=== PATIENT | female | born 1955 | race African-American/Black ===

== ENCOUNTER 2017-11-20 | Emergency (ER) | payer OTHER ==
[~2017-11-20] VITALS: Ht 167.6 cm; Wt 93.0 kg
[~2017-11-20] MED LIST: AUGM875T3 PO; HYDR-3533 PO; TRAM50 PO; Z.0.NO CURRENT MEDS
[2017-11-20 00:08] VITALS: BP 170/72; PULSE 77; RESP 16; TEMP 98.3; O2SAT 100
[2017-11-20] MEDS ORDERED: SODIUM CHLOR 0.9% 1000 ML INJ 1,000 ML IV ONE (00:21)
[2017-11-20] MEDS ORDERED: METOCLOPRAMIDE HCL 10 MG/2 ML VIAL IVP ONE (00:30)
[2017-11-20] MEDS ORDERED: diphenhydrAMINE HCL 50 MG/ML VIAL IVP ONE (00:30)
[2017-11-20] MEDS ORDERED: SODIUM CHLORIDE 0.9% FLUSH 10 ML FLUSH IVF PRN (00:30)
[2017-11-20] MEDS ORDERED: DEXAMETHASONE SOD PHOS 20 MG/5 ML VIAL IV PUSH ONE (00:30)
--- NOTE | 2017-11-20 00:39 | PD ---
HPI Chief Complaint: Headache Time Seen by Provider: 00:15 Travel History International Travel<30 days: No Contact w/Intl Traveler<30days: No Traveled to known affect area: No History of Present Illness HPI Patient is a 62-year-old female presents to emergency room with complaints of frontal headache. Reports that headache has been constant for the past 3 days, she has had similar headaches in the past. She did try taking aleve yesterday with mild relief of symptoms. Patient reports that she has return of headache tonight and she is unable to sleep due to her headache. She does have history of hypertension, reports that she did run out of her blood pressure medications and did not take them for a few days - reports that she did take a dose of her medications tonight. She is not able to tell me which medications she is on. Reports no vision changes, denies thunderclap headache. Reports that this is not the worst headache of her life, reports that she had similar headaches in the past and was seen in May for this. Patient with no fever or chills, no neck pain, no other complaints at this time. PFSH Past Medical History Cancer: No Cardiovascular Problems: Yes (HTN) Cirrhosis: Yes Endocrine: No GERD: Yes Genitourinary: No Hypertension: Yes Immune Disorder: No Musculoskeletal: No Neurologic: No Psychiatric: No Reproductive: No Respiratory: No Tetanus Vaccination: < 5 Years Influenza Vaccination: No ?: Not Menopausal: Yes Tubal Ligation: Yes Past Surgical History Pacemaker: No Social History Alcohol Use: No Tobacco Use: No Substance Use: No Allergies-Medications (Allergen,Severity, Reaction): Coded Allergies: No Known Allergies (Verified Adverse Reaction, Unknown, 11/20/17) Reported Meds & Prescriptions Reported Meds & Active Scripts Active Reported Lisinopril 20 Mg Tab 20 Mg PO DAILY Hydrochlorothiazide 25 Mg Tab 25 Mg PO DAILY Review of Systems General / Constitutional: No: Fever Eyes: No: Diploplia, Blurred Vision, Photophobia, Visual changes HENT: Positive: Headaches, No: Neck Pain Cardiovascular: No: Chest Pain or Discomfort Respiratory: No: Shortness of Breath Gastrointestinal: No: Abdominal Pain Genitourinary: No: Dysuria Musculoskeletal: No: Pain Skin: No Rash Neurologic: No: Weakness Psychiatric: No: Depression Endocrine: No: Polydipsia Hematologic/Lymphatic: No: Easy Bruising Physical Exam Narrative GENERAL: Mild distress SKIN: Focused skin assessment warm/dry. HEAD: Atraumatic. Normocephalic. EYES: Pupils equal and round. No scleral icterus. No injection or drainage. ENT: No nasal bleeding or discharge. Mucous membranes pink and moist. NECK: Trachea midline. No JVD. No nuchal rigidity CARDIOVASCULAR: Regular rate and rhythm. No murmur appreciated. RESPIRATORY: No accessory muscle use. Clear to auscultation. Breath sounds equal bilaterally. GASTROINTESTINAL: Abdomen soft, non-tender, nondistended. Hepatic and splenic margins not palpable. MUSCULOSKELETAL: No obvious deformities. No clubbing. No cyanosis. No edema. NEUROLOGICAL: Awake and alert. No obvious cranial nerve deficits. Motor grossly within normal limits. Normal speech. Cranial nerves 2-12 grossly intact with no neurological deficits PSYCHIATRIC: Appropriate mood and affect; insight and judgment normal. Data Data Last Documented VS Vital Signs Date Time Temp Pulse Resp B/P (MAP) Pulse Ox O2 Delivery O2 Flow Rate FiO2 11/20/17 00:58 72 18 136/64 (88) 99 Room Air 11/20/17 00:08 98.3 Orders Orders Complete Blood Count With Diff (11/20/17 00:21) Basic Metabolic Panel (Bmp) (11/20/17 00:21) Ct Brain W/O Iv Contrast(Rout) (11/20/17 00:21) Ecg Monitoring (11/20/17 00:21) Iv Access Insert/Monitor (11/20/17 00:21) Sodium Chloride 0.9% Flush (Ns Flush) (11/20/17 00:30) Diphenhydramine Inj (Benadryl Inj) (11/20/17 00:30) Metoclopramide Inj (Reglan Inj) (11/20/17 00:30) Sodium Chlor 0.9% 1000 Ml Inj (Ns 1000 M (11/20/17 00:21) Dexamethasone Inj (Decadron Inj) (11/20/17 00:30) MDM Medical Decision Making Medical Screen Exam Complete: Yes Emergency Medical Condition: Yes Medical Record Reviewed: Yes Interpretation(s) Vital Signs Date Time Temp Pulse Resp B/P (MAP) Pulse Ox O2 Delivery O2 Flow Rate FiO2 11/20/17 00:08 98.3 77 16 170/72 (104) 100 Differential Diagnosis migraine, ich, accelerated hypertension Narrative Course Patient is a 62-year-old female presents to emergency room complaining of typical migraine headache. Patient reports that she has had a throbbing frontal headache for the past few days, reports that she did run out of her blood pressure medications and has not taken them for a few days - she did get a refill today and took a dose tonight. Reports that she has had similar symptoms in the past and was seen in the ER for this with complete resolution of symptoms. Patient at this time has normal neurological exam with overall benign physical exam. During the course of the patients emergency department visit, the patients history, examination, and differential diagnosis were reviewed with the patient. The patient was placed on a threat monitoring analyst with oximetry and frequent blood pressure monitoring. The patient had an IV access obtained and blood work sent for analysis. The patient was initially provided migraine cocktail Diagnosis Primary Impression: Cephalgia Qualified Codes: R51 - Headache Patient Instructions: General Instructions Additional Instructions: Please provide patient with a copy of their lab work and studies at discharge* * Please follow up with your primary care doctor in 2-3 days Return to the ER if symptoms worsen or progress Return to the ER as needed Bhavna Galvez DO Nov 20, 2017 00:39
[2017-11-20] MEDS ORDERED: LISI-515 PO (00:43)
[2017-11-20] MEDS ORDERED: HYDR25TA5 PO (00:43)
[2017-11-20 00:58] VITALS: BP 136/64; PULSE 72; RESP 18; O2SAT 99
--- NOTE | 2017-11-20 01:05 | RADRPT ---
EXAM DATE/TIME: 11/20/2017 00:44 [facility] COMPARISON: CT BRAIN W/O CONTRAST, June 21, 2017, 23:11. INDICATIONS : Cephalgia. RADIATION DOSE: 56.35 CTDIvol (mGy) MEDICAL HISTORY : Hypertension. SURGICAL HISTORY : None. ENCOUNTER: Initial ACUITY: 3 days PAIN SCALE: 8/10 LOCATION: cranial TECHNIQUE: Multiple contiguous axial images were obtained of the head. Using automated exposure control and adj ustment of the mA and/or kV according to patient size, radiation dose was kept as low as reasonably a chievable to obtain optimal diagnostic quality images. DICOM format image data is available electro nically for review and comparison. FINDINGS: CEREBRUM: The ventricles are normal for age. No evidence of midline shift, mass lesion, hemorrhage or acute in farction. No extra-axial fluid collections are seen. POSTERIOR FOSSA: The cerebellum and brainstem are intact. The 4th ventricle is midline. The cerebellopontine angle i s unremarkable. EXTRACRANIAL: The visualized portion of the orbits is intact. SKULL: The calvaria is intact. No evidence of skull fracture. CONCLUSION: Normal examination. Trace fluid in the left maxillary sinus Zev Nunez MD on November 20, 2017 at 1:03 Board Certified Radiologist. This report was verified electronically.
[2017-11-20 01:21] LABS: AUTOMATED NEUTROPHIL # 3.9 TH/MM3 (1.8-7.7); BASOPHIL % 0.5 % (0.0-2.0); EOSINOPHIL # 0.1 TH/MM3 (0-0.4); EOSINOPHIL % 0.7 % (0.0-4.0); HEMATOCRIT 38.7 % (35.0-46.0); HEMOGLOBIN 13.5 GM/DL (11.6-15.3); LYMPH % 29.4 % (9.0-44.0); LYMPHOCYTE # 2.2 TH/MM3 (1.0-4.8); MEAN CELL VOLUME 84.6 FL (80.0-100.0); MEAN CORPUSCULAR HEMOGLOBIN 29.5 PG (27.0-34.0); MEAN CORPUSCULAR HGB CONC 34.9 % (32.0-36.0); MEAN PLATELET VOLUME 9.1 FL (7.0-11.0); MONO % 16.9 % (0.0-8.0); MONOCYTE # 1.2 TH/MM3 (0-0.9); NEUT % 52.5 % (16.0-70.0); PLATELET COUNT 158 TH/MM3 (150-450); RED BLOOD COUNT 4.58 MIL/MM3 (4.00-5.30); RED CELL DISTRIBUTION WIDTH 14.2 % (11.6-17.2); WHITE BLOOD COUNT 7.4 TH/MM3 (4.0-11.0)
[2017-11-20 02:54] LABS: BICARBONATE 30.9 MEQ/L (21.0-32.0); CALCIUM 8.3 MG/DL (8.5-10.1); CREATININE 1.02 MG/DL (0.50-1.00)
--- NOTE | 2017-11-20 03:09 | PD ---
Data Data Last Documented VS Vital Signs Date Time Temp Pulse Resp B/P (MAP) Pulse Ox O2 Delivery O2 Flow Rate FiO2 11/20/17 00:58 72 18 136/64 (88) 99 Room Air 11/20/17 00:08 98.3 Orders Orders Complete Blood Count With Diff (11/20/17 00:21) Basic Metabolic Panel (Bmp) (11/20/17 00:21) Ct Brain W/O Iv Contrast(Rout) (11/20/17 00:21) Ecg Monitoring (11/20/17 00:21) Iv Access Insert/Monitor (11/20/17 00:21) Sodium Chloride 0.9% Flush (Ns Flush) (11/20/17 00:30) Diphenhydramine Inj (Benadryl Inj) (11/20/17 00:30) Metoclopramide Inj (Reglan Inj) (11/20/17 00:30) Sodium Chlor 0.9% 1000 Ml Inj (Ns 1000 M (11/20/17 00:21) Dexamethasone Inj (Decadron Inj) (11/20/17 00:30) Ed Discharge Order (11/20/17 03:08) Labs Laboratory Tests Test 11/20/17 00:55 11/20/17 02:20 White Blood Count 7.4 TH/MM3 Red Blood Count 4.58 MIL/MM3 Hemoglobin 13.5 GM/DL Hematocrit 38.7 % Mean Corpuscular Volume 84.6 FL Mean Corpuscular Hemoglobin 29.5 PG Mean Corpuscular Hemoglobin Concent 34.9 % Red Cell Distribution Width 14.2 % Platelet Count 158 TH/MM3 Mean Platelet Volume 9.1 FL Neutrophils (%) (Auto) 52.5 % Lymphocytes (%) (Auto) 29.4 % Monocytes (%) (Auto) 16.9 % Eosinophils (%) (Auto) 0.7 % Basophils (%) (Auto) 0.5 % Neutrophils # (Auto) 3.9 TH/MM3 Lymphocytes # (Auto) 2.2 TH/MM3 Monocytes # (Auto) 1.2 TH/MM3 Eosinophils # (Auto) 0.1 TH/MM3 Basophils # (Auto) 0.0 TH/MM3 CBC Comment DIFF FINAL Differential Comment Blood Urea Nitrogen 18 MG/DL Creatinine 1.02 MG/DL Random Glucose 116 MG/DL Calcium Level 8.3 MG/DL Sodium Level 139 MEQ/L Potassium Level 3.5 MEQ/L Chloride Level 104 MEQ/L Carbon Dioxide Level 30.9 MEQ/L Anion Gap 4 MEQ/L Estimat Glomerular Filtration Rate 67 ML/MIN [facility] Medical Record Reviewed: Yes Supervised Visit with PRINCE: No Narrative Course I assumed care of this patient pending lab work and CT the brain. Briefly this is a 62-year-old female who has been experiencing a headache for 3 days. CBC is unremarkable. BMP reveals a GFR of 67, calcium 8.3. CT the brain reveals trace fluid in the left maxillary sinus otherwise unremarkable. The patient was given a migraine cocktail and upon my examination she reports resolution of her symptoms. She is stable for discharge. Diagnosis Primary Impression: Cephalgia Qualified Codes: R51 - Headache Patient Instructions: General Instructions Additional Instruction: Please provide patient with a copy of their lab work and studies at discharge* * Please follow up with your primary care doctor in 2-3 days Return to the ER if symptoms worsen or progress Return to the ER as needed Med/Other Pt SpecificInfo: No Change to Meds Disposition: 01 DISCHARGE HOME Condition: Stable Dax Velazquez Nov 20, 2017 03:09
== END 2017-11-20 03:45 | disposition home or self-care (01) ==
LOC: NEPD
DX: R51 Headache (principal); I10 Essential (primary) hypertension; K74.60 Unspecified cirrhosis of liver; K21.9 Gastro-esophageal reflux disease without esophagitis; Z79.899 Other long term (current) drug therapy
CPT/HCPCS: 70450; 80048; 85025; 96361; 96374; 96375; 99284; J1100; J1200; J2765; J7030

== ENCOUNTER 2017-12-13 21:09 | Emergency (ER) | payer OTHER ==
[~2017-12-13] VITALS: Ht 167.6 cm; Wt 90.9 kg
[~2017-12-13 21:09] MED LIST changes: -AUGM875T3 PO; -HYDR-3533 PO; +HYDR25TA5 PO; +LISI-515 PO; -TRAM50 PO; -Z.0.NO CURRENT MEDS
[2017-12-13 21:15] VITALS: BP 133/69; PULSE 72; RESP 18; TEMP 98.2; O2SAT 100
[2017-12-13] MEDS ORDERED: ROBA500T PO (21:28)
[2017-12-13] MEDS ORDERED: IBUP-232 PO (21:28)
--- NOTE | 2017-12-13 21:28 | PD ---
HPI Chief Complaint: Back/ Neck Pain or Injury Time Seen by Provider: 21:21 Travel History International Travel<30 days: No Contact w/Intl Traveler<30days: No Traveled to known affect area: No History of Present Illness HPI 62-year-old female presents emergency department for evaluation of a tightness across her back. Patient states she feels as though her muscle spasming. She believes may have slept wrong. This is been going on for 3 days. It is worse at night and she is having a difficult time sleeping. She is asking for pain control. Denies any injury. No focal deficits or weakness. No chest pain or tightness. No difficulty breathing. No other symptoms to report. PFSH Past Medical History Cancer: No Cardiovascular Problems: Yes (HTN) Cirrhosis: Yes Diminished Hearing: No Endocrine: No GERD: Yes Genitourinary: No Hypertension: Yes Immune Disorder: No Musculoskeletal: No Neurologic: No Psychiatric: No Reproductive: No Respiratory: No Tetanus Vaccination: < 5 Years Influenza Vaccination: No ?: Not Menopausal: Yes : 10 Para: 10 Tubal Ligation: Yes Past Surgical History Surgical History: No Previous Surgery Pacemaker: No Social History Alcohol Use: No Tobacco Use: No Substance Use: No Allergies-Medications (Allergen,Severity, Reaction): Coded Allergies: No Known Allergies (Verified Adverse Reaction, Unknown, 12/13/17) Reported Meds & Prescriptions Reported Meds & Active Scripts Active Ibuprofen 600 Mg Tab 600 Mg PO Q8HR PRN Robaxin (Methocarbamol) 500 Mg Tab 500 Mg PO TID PRN Reported Lisinopril 20 Mg Tab 20 Mg PO DAILY Hydrochlorothiazide 25 Mg Tab 25 Mg PO DAILY Review of Systems Except as stated in HPI: all other systems reviewed are Neg Physical Exam Narrative GENERAL: Well-nourished, well-developed female patient, ambulatory and in no acute distress. SKIN: Focused skin assessment warm/dry. HEAD: Normocephalic. EYES: No scleral icterus. No injection or drainage. NECK: Supple, trachea midline. No JVD or lymphadenopathy. CARDIOVASCULAR: Regular rate and rhythm without murmurs, gallops, or rubs. RESPIRATORY: Breath sounds equal bilaterally. No accessory muscle use. GASTROINTESTINAL: Abdomen soft, non-tender, nondistended. MUSCULOSKELETAL: No cyanosis, or edema. There is palpable muscle spasm across the upper back and right trapezius musculature. 5+ strength equal bilateral extremities. BACK: Nontender without obvious deformity. No CVA tenderness. No spinal tenderness Data Data Last Documented VS Vital Signs Date Time Temp Pulse Resp B/P (MAP) Pulse Ox O2 Delivery O2 Flow Rate FiO2 12/13/17 22:04 88 20 100 12/13/17 21:15 98.2 133/69 (90) Orders Orders Cyclobenzaprine (Flexeril) (12/13/17 21:30) Ed Discharge Order (12/13/17 21:25) [facility] Medical Decision Making Medical Screen Exam Complete: Yes Emergency Medical Condition: Yes Medical Record Reviewed: Yes Differential Diagnosis Spasm versus strain versus discogenic pain versus radiculopathy Narrative Course 62-year-old female presents emergency department for evaluation of muscle spasm in her back. Physical exam is consistent with this. Patient is given a Flexeril here. She will be discharged home with Robaxin and ibuprofen. She is counseled on care. She is encouraged to follow-up with a primary care provider and return immediately with acute worsening symptoms. Diagnosis Primary Impression: Muscle spasm of back Referrals: Primary Care Physician Patient Instructions: General Instructions, Muscle Spasm (ED) Additional Instructions: WARM MOIST HEAT MAY HELP TO ALLEVIATE SYMPTOMS FOLLOW UP WITH PRIMARY CARE PROVIDER RETURN TO ED WITH ACUTE WORSENING OF SYMPTOMS Med/Other Pt SpecificInfo: Prescription(s) given Scripts Ibuprofen (Ibuprofen) 600 Mg Tab 600 MG PO Q8HR Y for PAIN, #30 TAB 0 Refills Prov: Janelle Quintero 12/13/17 Methocarbamol (Robaxin) 500 Mg Tab 500 MG PO TID Y for MUSCLE SPASM, #20 TAB 0 Refills Prov: Janelle Quintero 12/13/17 Disposition: 01 DISCHARGE HOME Condition: Stable Janelle Quintero Dec 13, 2017 21:28
[2017-12-13] MEDS ORDERED: CYCLOBENZAPRINE HCL 10 MG TAB PO ONE (21:30)
== END 2017-12-13 22:07 | disposition home or self-care (01) ==
LOC: NEPD 21:09
DX: M62.830 Muscle spasm of back (principal); I10 Essential (primary) hypertension; K21.9 Gastro-esophageal reflux disease without esophagitis; Z87.19 Personal history of other diseases of the digestive system
CPT/HCPCS: 99283